=== PATIENT | male | born 1990 | race African-American/Black ===

== ENCOUNTER 2016-10-27 10:57 | Emergency (ER) | payer OTHER ==
[~2016-10-27] VITALS: Ht 167.6 cm; Wt 63.5 kg
[~2016-10-27 10:57] MED LIST: NORCO 5-325 TA1 EACH PO; PENICILLIN V P500 MG PO; PENICILLIN VK500 MG PO; PERCOCET 5-3251 EACH PO
[2016-10-27] MEDS ORDERED: ONDANSETRON HCL4 M2 PO (12:58)
[2016-10-27] MEDS ORDERED: HYDROCODONE-AP1 EAC6 PO (12:58)
[2016-10-27] MEDS ORDERED: IBUPROFEN 600600 M1 PO (12:58)
[2016-10-27 13:22] VITALS: BP 136/92
== END 2016-10-27 13:24 | disposition home or self-care (01) ==
LOC: ER 10:57
DX: M54.5 Low back pain (principal); F17.210 Nicotine dependence, cigarettes, uncomplicated; F10.99 Alcohol use, unspecified with unspecified alcohol-induced disorder